=== PATIENT | male | born 1970 | race Caucasian/White ===

== ENCOUNTER 2016-09-27 12:22 | Inpatient (IN) | payer OTHER ==
[2016-09-27] VITALS (8 sets, daily range): BP systolic 134–144; BP diastolic 83–93
[~2016-09-27 12:22] MED LIST: CeFAZolin 1 GM/DEXTROSE 50 ML IV ONE; FentaNYL CITRATE-PF 100 MCG/2 ML VIAL IVP ONE; METF500T4 PO; MIDAZOLAM HCL 2 MG/2 ML VIAL IVP ONE; SODIUM CHLORIDE 0.9% 1,000 ML IV ONE
[2016-09-27] MEDS ORDERED: SODIUM CHLORIDE 0.9% 1,000 ML IV ONE ×2 (12:33→14:30)
[2016-09-27 13:00] LABS: BASOPHILS % (AUTO) 0.5 % (0.0-2.0); EOSINOPHILS % (AUTO) 1.8 % (1.0-6.0); HEMOGLOBIN 9.5 g/dL (13.5-17.5); LYMPHOCYTES # (AUTO) 1.1 K/uL (1.0-4.8); LYMPHOCYTES % (AUTO) 10.6 % (22.0-44.0); MEAN CORPUSCULAR HEMOGLOBIN 26.3 pg (26.0-34.0); MEAN CORPUSCULAR HGB CONC 31.5 G/dL (31.0-37.0); MEAN CORPUSCULAR VOLUME 84 fL (80-100); MONOCYTES # (AUTO) 0.9 K/uL (0.1-1.0); MONOCYTES % (AUTO) 8.9 % (2.0-9.0); NEUTROPHILS # (AUTO) 7.7 K/uL (1.8-7.7); NEUTROPHILS % (AUTO) 78.2 % (40.0-70.0); PLATELET COUNT (AUTO) 370 K/uL (150-450); RED CELL DISTRIBUTION WIDTH 16.6 % (11.5-14.5); WHITE BLOOD COUNT (AUTO) 9.9 K/uL (4.5-11.0)
[2016-09-27 13:11] LABS: PROTHROMBIN TIME 10.6 SEC (9.4-11.6)
[2016-09-27 13:16] LABS: ALANINE AMINOTRANSFERASE 56 U/L (12-78); ALBUMIN 2.7 g/dL (3.4-5.0); ANION GAP 9 mmol/L (8-16); ASPARTATE AMINOTRANSFERASE 132 U/L (15-37); BILIRUBIN,TOTAL 0.5 mg/dL (0.1-1.0); CALCIUM, TOTAL 8.5 mg/dL (8.8-10.5); CARBON DIOXIDE 27 mmol/L (22-29); CHLORIDE 101 mmol/L (98-107); CREATININE 0.73 mg/dL (0.60-1.30); GLOMERULAR FILTR. RATE CALC > 60 mL/min (>60); POTASSIUM 3.7 mmol/L (3.5-5.1); SODIUM SERUM 137 mmol/L (136-145); TOTAL PROTEIN, SERUM 7.1 g/dL (6.4-8.2); UREA NITROGEN, BLOOD 8 mg/dL (7-18)
[2016-09-27] MEDS ORDERED: CeFAZolin 1 GM/DEXTROSE 50 ML IV ONE ×2 (14:26→14:30)
[2016-09-27] MEDS ORDERED: LORazepam 2 MG/ML VIAL IVP PRN (14:30)
[2016-09-27] MEDS ORDERED: HEPARIN SODIUM 1000 UNITS/NS 500 ML IARTER ONE (19:48)
[2016-09-27] MEDS ORDERED: LIDOCAINE 1% 30 ML/SOD BICARB 8.4% 4 ML SQ ONE (19:48)
[2016-09-27] MEDS ORDERED: MIDAZOLAM HCL 2 MG/2 ML VIAL IVP ONE (19:49)
[2016-09-27] MEDS ORDERED: FentaNYL CITRATE-PF 100 MCG/2 ML VIAL IVP ONE (19:49)
[2016-09-27] MEDS ORDERED: IOHEXOL 300 MG/ML 100 ML VIAL IARTER ONE (19:53)
[2016-09-27] MEDS ORDERED: SODIUM CHLORIDE 0.9% 1,000 ML IV SCH (20:28)
[2016-09-27] MEDS ORDERED: HYDROmorphone HCL 2 MG TABLET PO ONE (20:30)
[2016-09-27] MEDS ORDERED: OxyCODONE HCL/ACETAMINOPHEN 5-325 MG TABLET PO PRN (20:30)
[2016-09-28] VITALS (9 sets, daily range): BP systolic 104–158; BP diastolic 69–93
[2016-09-28] MEDS ORDERED: HYDROmorphone 2 MG/ML SYRINGE IVP ONE
[2016-09-28] MEDS ORDERED: PNEUMOCOCCAL VACCINE POLYVALENT 0.5 ML VIAL [PPSV23] IM ONE (04:00)
[2016-09-28] MEDS: OxyCODONE HCL/ACETAMINOPHEN 5-325 MG TABLET PO PRN ×2 (06:08→19:47)
[2016-09-28] MEDS: HYDROmorphone 2 MG/ML SYRINGE IVP PRN ×5 (07:49→22:56)
[2016-09-28] MEDS ORDERED: CeFAZolin 1 GM/DEXTROSE 50 ML IV ONE (09:00)
[2016-09-28] MEDS ORDERED: LORazepam 2 MG/ML VIAL IVP PRN (09:00)
[2016-09-28] MEDS: SODIUM CHLORIDE 0.9% 1,000 ML IV SCH ×3 (10:50→22:59)
[2016-09-28] MEDS ORDERED: ONDANSETRON HCL 4 MG/2 ML VIAL IVP ONE (12:00)
[2016-09-28] MEDS ORDERED: 0.9% SODIUM CHLORIDE 10 ML VIAL IVP ONE (12:00)
[2016-09-28] MEDS ORDERED: HYDROmorphone 2 MG/ML SYRINGE IVP PRN (16:15)
[2016-09-28] MEDS ORDERED: FentaNYL CITRATE-PF 100 MCG/2 ML VIAL IVP PRN (16:15)
[2016-09-28] MEDS ORDERED: MEPERIDINE-PF 25 MG/ML SYRINGE IVP PRN (16:15)
[2016-09-29] MEDS: OxyCODONE HCL/ACETAMINOPHEN 5-325 MG TABLET PO PRN (02:25)
[2016-09-29 04:49] VITALS: BP 128/80
[2016-09-29] MEDS: HYDROmorphone 2 MG/ML SYRINGE IVP PRN ×6 (06:30→20:57)
[2016-09-29] MEDS: SODIUM CHLORIDE 0.9% 1,000 ML IV SCH ×3 (06:34→20:15)
[2016-09-29 07:37] VITALS: BP 100/70
[2016-09-29] MEDS ORDERED: CEPH500 PO (10:21)
[2016-09-29] MEDS ORDERED: HYDR2 PO (10:23)
[2016-09-29] MEDS ORDERED: PROM25 PO (10:24)
[2016-09-29 11:21] LABS: BASOPHILS # (AUTO) 0.02 K/uL (0.00-0.20); BASOPHILS % (AUTO) 0.2 % (0.0-2.0); EOSINOPHILS # (AUTO) 0.11 K/uL (0.00-0.70); EOSINOPHILS % (AUTO) 1.01 % (1.0-6.0); HEMATOCRIT 28.1 % (41-53); HEMOGLOBIN 9.4 g/dL (13.5-17.5); LYMPHOCYTES # (AUTO) 0.6 K/uL (1.0-4.8); LYMPHOCYTES % (AUTO) 5.5 % (22.0-44.0); MEAN CORPUSCULAR HGB CONC 33.3 G/dL (31.0-37.0); MEAN CORPUSCULAR VOLUME 81 fL (80-100); MONOCYTES # (AUTO) 1.2 K/uL (0.1-1.0); MONOCYTES % (AUTO) 10.9 % (2.0-9.0); NEUTROPHILS # (AUTO) 8.8 K/uL (1.8-7.7); NEUTROPHILS % (AUTO) 82.5 % (40.0-70.0); PLATELET COUNT (AUTO) 246 K/uL (150-450); RED BLOOD CELL COUNT(AUTO) 3.47 MIL/uL (4.50-5.90); WHITE BLOOD COUNT (AUTO) 10.6 K/uL (4.5-11.0)
[2016-09-29 11:47] VITALS: BP 111/69
[2016-09-29 14:34] LABS: APPEARANCE,URINE CLEAR (CLEAR); GLUCOSE, URINE (UA) NEGATIVE (NEGATIVE); KETONES,URINE NEGATIVE (NEGATIVE); LEUKOCYTE ESTERASE ,URINE NEGATIVE (NEGATIVE); OCCULT BLOOD,URINE NEGATIVE (NEGATIVE); PH,URINE 5.5 (5.0-8.0); PROTEIN,URINE POS 1+ (NEGATIVE)
[2016-09-29 14:35] LABS: ADD UA MICROSCOPIC NO
[2016-09-29 15:51] VITALS: BP 127/79
[2016-09-29 19:18] VITALS: BP 121/74
[2016-09-29 23:55] VITALS: BP 117/72
[2016-09-30] VITALS (7 sets, daily range): BP systolic 101–119; BP diastolic 61–75
[2016-09-30] MEDS: HYDROmorphone 2 MG/ML SYRINGE IVP PRN ×7 (00:14→21:06)
[2016-09-30] MEDS: SODIUM CHLORIDE 0.9% 1,000 ML IV SCH ×4 (01:15→18:57)
[2016-09-30 05:53] LABS: BASOPHILS % (AUTO) 0.1 % (0.0-2.0); EOSINOPHILS % (AUTO) 0.2 % (1.0-6.0); HEMATOCRIT 26.3 % (41-53); HEMOGLOBIN 8.2 g/dL (13.5-17.5); LYMPHOCYTES # (AUTO) 0.5 K/uL (1.0-4.8); MEAN CORPUSCULAR HEMOGLOBIN 25.9 pg (26.0-34.0); MEAN CORPUSCULAR HGB CONC 31.1 G/dL (31.0-37.0); MEAN CORPUSCULAR VOLUME 83 fL (80-100); MONOCYTES # (AUTO) 1.4 K/uL (0.1-1.0); MONOCYTES % (AUTO) 11.7 % (2.0-9.0); PLATELET COUNT (AUTO) 227 K/uL (150-450); RED BLOOD CELL COUNT(AUTO) 3.16 MIL/uL (4.50-5.90); RED CELL DISTRIBUTION WIDTH 16.7 % (11.5-14.5); WHITE BLOOD COUNT (AUTO) 11.9 K/uL (4.5-11.0)
[2016-09-30] MEDS: CefTRIAXone 1 GM/DEXTROSE 50 ML IV SCH (09:20)
[2016-09-30] MEDS: OxyCODONE HCL/ACETAMINOPHEN 5-325 MG TABLET PO PRN ×2 (13:24→23:14)
[2016-10-01] MEDS: SODIUM CHLORIDE 0.9% 1,000 ML IV SCH ×3 (01:06→08:50)
[2016-10-01 05:37] VITALS: BP 128/83
[2016-10-01 07:37] VITALS: BP 129/78
[2016-10-01] MEDS: HYDROmorphone 2 MG/ML SYRINGE IVP PRN (08:03)
[2016-10-01] MEDS: CefTRIAXone 1 GM/DEXTROSE 50 ML IV SCH (08:10)
[2016-10-01] MEDS: OxyCODONE HCL/ACETAMINOPHEN 5-325 MG TABLET PO PRN (10:09)
[2016-10-01 10:19] VITALS: BP 119/69
[2016-10-01] MEDS ORDERED: CEPH250C2 PO (10:59)
[2016-10-01] MEDS ORDERED: HYDR1LIQ5 PO (11:01)
[2016-10-01] MEDS ORDERED: METF500T4 PO (11:02)
[2016-10-01] MEDS ORDERED: PROM12.510 PO (11:03)
== END 2016-10-01 11:51 | disposition home or self-care (01) | DRG 356 ==
LOC: SDS 12:22 → 5S 12:23 → OBSVTOIN 12:23 → UNDOADMOB 21:00 → 5S 21:00
PROVIDERS: ADMIT Hospitalist; ATTEND Hospitalist
PROC: 04L33DZ Occlusion of Hepatic Artery with Intraluminal Device, Percutaneous Approach (ICD-10-PCS; principal; 2016-09-27)
PROC: B4101ZZ Fluoroscopy of Abdominal Aorta using Low Osmolar Contrast (ICD-10-PCS; 2016-09-27)
PROC: B4121ZZ Fluoroscopy of Hepatic Artery using Low Osmolar Contrast (ICD-10-PCS; 2016-09-27)
DX: C18.9 Malignant neoplasm of colon, unspecified (principal); K25.4 Chronic or unspecified gastric ulcer with hemorrhage; C78.7 Secondary malignant neoplasm of liver and intrahepatic bile duct; R00.0 Tachycardia, unspecified; F41.9 Anxiety disorder, unspecified; E11.9 Type 2 diabetes mellitus without complications; D64.9 Anemia, unspecified; Z79.84 Long term (current) use of oral hypoglycemic drugs
CPT/HCPCS: 36245; 75774; 76937; 87040; 87081; 93005; J0690; J0696; J1170; J2060; J2250; J2405; J3010; J7030